=== PATIENT | male | born 1990 | race Hispanic/Latino ===

== ENCOUNTER 2016-10-20 11:14 | Outpatient (CLI) | payer BC, OTHER ==
[2016-10-20 18:22] LABS: #Basophils 0.1 thou/uL (0.0-0.2); #Eosinphils 0.1 thou/uL (0.0-0.7); #Lymphocytes 1.7 thou/uL (1.20-3.40); #Monocytes 0.2 thou/uL (0.11-0.59); #Neutrophils 3.3 thou/uL (1.40-6.50); %Eosinophils 2.7 % (0.0-10.0); %Monocytes 3.3 % (0.0-10.0); Hematocrit 43.5 % (42.0-52.0); Mean Platelet Volume 7.8 fL (7.4-10.4); Red Blood Cell (RBC) Count 4.79 mill/uL (4.70-6.10); White Blood Cell (WBC) Count 5.4 thou/uL (4.8-10.8)
[2016-10-20 18:39] LABS: Anion Gap 15 mmol/L (10-20); BUN (Urea Nitrogen) 14 mg/dL (8.9-20.6); CK (CPK) 244 U/L (30-200); Calc. Creatinine Clearance 0 mL/min (70-130); Calcium 9.4 mg/dL (7.8-10.44); Carbon Dioxide 26 mmol/L (22-29); Chloride 101 mmol/L (98-107); Estimated GFR-MDRD 62
[2016-10-20 20:08] LABS: Bilirubin Negative (Negative); Blood, Urine Trace (Negative); Glucose, Urine (Dipstick) Negative (Negative); Ketone, Urine Negative (Negative); Nitrite Negative (Negative); Protein, Urine (Dipstick) Trace mg/dL (Neg-Trace); Urobilinogen 0.2 mg/dL (0.2-1.0)
[2016-10-20 21:46] LABS: Bacteria/HPF None Seen HPF (None Seen); Squamous Epithelial 0-3 HPF (0-3); WBC/HPF 0-3 HPF (0-3)
== END 2016-10-20 11:15 ==
LOC: LABLEX 11:14
PROVIDERS: ATTEND Family Medicine
DX: R31.9 Hematuria, unspecified (principal); R10.30 Lower abdominal pain, unspecified; R59.0 Localized enlarged lymph nodes; R82.90 Unspecified abnormal findings in urine
CPT/HCPCS: 36415; 80048; 81001; 82550; 85025; 87086

== ENCOUNTER 2016-10-26 09:05 | Outpatient (CLI) | payer BC ==
[2016-10-26 16:22] LABS: Anion Gap 13 mmol/L (10-20); BUN (Urea Nitrogen) 15 mg/dL (8.9-20.6); CK (CPK) 171 U/L (30-200); Calc. Creatinine Clearance 0 mL/min (70-130); Calcium 9.4 mg/dL (7.8-10.44); Carbon Dioxide 29 mmol/L (22-29); Chloride 104 mmol/L (98-107); Estimated GFR-MDRD 89
== END 2016-10-26 09:06 ==
LOC: LABLEX 09:05
PROVIDERS: ATTEND Family Medicine
DX: N28.9 Disorder of kidney and ureter, unspecified (principal); M62.82 Rhabdomyolysis
CPT/HCPCS: 80048; 82550